=== PATIENT | male | born 1975 | race Native Hawaiian/Other Pacific Islander ===

== ENCOUNTER 2018-03-20 15:34 | Outpatient (CLI) | payer OTHER | END 2018-03-20 15:35 | disposition home or self-care (01) | LOC: SC 15:34 | PROVIDERS: ATTEND Internal Medicine Pulmonary Disease | DX: G47.10 Hypersomnia, unspecified (principal); R06.83 Snoring; G47.8 Other sleep disorders | CPT/HCPCS: 99203; 99212 ==

== ENCOUNTER 2018-05-16 20:19 | Outpatient (CLI) | payer OTHER | END 2018-05-16 20:20 | disposition home or self-care (01) | LOC: SC 20:19 | PROVIDERS: ATTEND Internal Medicine Pulmonary Disease | DX: G47.33 Obstructive sleep apnea (adult) (pediatric) (principal); G47.61 Periodic limb movement disorder | CPT/HCPCS: 95810 ==

== ENCOUNTER 2018-07-24 08:54 | Outpatient (CLI) | payer OTHER | END 2018-07-24 08:55 | disposition home or self-care (01) | LOC: SC 08:54 | PROVIDERS: ATTEND Nurse Practitioner Family | DX: G47.33 Obstructive sleep apnea (adult) (pediatric) (principal); G47.61 Periodic limb movement disorder | CPT/HCPCS: 99212; 99214 ==

== ENCOUNTER 2018-12-12 12:56 | Outpatient (CLI) | payer OTHER | END 2018-12-12 12:57 | disposition home or self-care (01) | LOC: SC 12:56 | PROVIDERS: ATTEND Nurse Practitioner Family | DX: G47.33 Obstructive sleep apnea (adult) (pediatric) (principal) | CPT/HCPCS: 99212; 99214 ==

== ENCOUNTER 2018-12-21 14:18 | Outpatient (CLI) | payer OTHER ==
[2018-12-21 14:53] LABS: BASOPHILS % (AUTO) 0.5 %; EOSINOPHILS # (AUTO) 0.2 10^3/uL (0.0-0.7); EOSINOPHILS % (AUTO) 2.5 %; HGB - HEMOGLOBIN 14.3 g/dL (14.0-18.0); LYMPHOCYTES # (AUTO) 2.1 10^3/uL (1.5-3.5); MEAN CORPUSCULAR HEMOGLOBIN 29.3 pg (27.0-31.0); MEAN CORPUSCULAR HGB CONC 33.1 g/dL (32.0-36.0); MEAN CORPUSCULAR VOLUME 88.4 fL (80.0-94.0); MEAN PLATELET VOLUME 7.9 fL (7.4-11.4); MONOCYTES # (AUTO) 0.6 10^3/uL (0.0-1.0); MONOCYTES % (AUTO) 8.8 %; NEUTROPHILS % (AUTO) 58.2 %; PLT - PLATELET COUNT 189 10^3/uL (130-450); RED BLOOD COUNT 4.89 10^6/uL (4.70-6.10); RED CELL DISTRIBUTION WIDTH 13.4 % (12.0-15.0); WHITE BLOOD COUNT 6.9 x10^3/uL (4.8-10.8)
[2018-12-21 15:59] LABS: ALBUMIN 4.1 g/dL (3.2-5.5); ALBUMIN/GLOBULIN RATIO 1.2 (1.0-2.2); BILIRUBIN,TOTAL 0.4 mg/dL (0.2-1.0); CALCIUM 8.6 mg/dL (8.5-10.3); TOTAL PROTEIN 7.5 g/dL (6.7-8.2)
== END 2018-12-21 14:19 | disposition home or self-care (01) ==
LOC: RT 14:18
PROVIDERS: ATTEND Internal Medicine Gastroenterology
DX: K42.9 Umbilical hernia without obstruction or gangrene (principal); E66.9 Obesity, unspecified; M10.9 Gout, unspecified; G47.33 Obstructive sleep apnea (adult) (pediatric); I10 Essential (primary) hypertension; E78.5 Hyperlipidemia, unspecified; E11.9 Type 2 diabetes mellitus without complications
CPT/HCPCS: 36415; 80053; 85025; 93005

== ENCOUNTER 2018-12-25 06:16 | Day surgery (SDC) | payer OTHER ==
[2018-12-25] MEDS ORDERED: ceFAZolin 2 GM/50 ML 2 GM/50 ML BAG IV ONE (06:53)
[2018-12-25] MEDS ORDERED: ceFAZolin 1 GM VIAL ONE (07:00)
[2018-12-25] MEDS ORDERED: LACTATED RINGERS 1,000 ML IV ONE (07:00)
[2018-12-25] MEDS ORDERED: LIDOCAINE 1%-EPI 1:100000 30 ML MDV ONE (07:01)
[2018-12-25] MEDS ORDERED: BUPIVACAINE 0.5% PF 30 ML VIAL ONE (07:01)
--- NOTE | 2018-12-25 07:15 | ANESTHESIA ---
Pre-Anesthesia VS, & Labs - Diagnosis umbilical hernia - Procedure umbilical hernia repair with mesh Vital Signs: Temp Pulse Resp BP Pulse Ox 36.2 C L 77 16 145/113 H 98 12/25/18 06:20 12/25/18 06:20 12/25/18 06:20 12/25/18 06:20 12/25/18 06:20 Height 5 ft 10 in Weight (kg) 101.9 kg Body Mass Index 27.6 - NPO >8 hours - Lab Results Current Lab Results: Laboratory Tests 12/25/18 06:51: POC Whole Bld Glucose 116 H Home Medications and Allergies Home Medications: Ambulatory Orders Colchicine 0.6 mg PO ONCE PRN 12/14/18 Telmisartan [Micardis] 20 mg PO DAILY 03/08/15 Simvastatin 20 mg PO QPM 02/15/16 Colchicine 0.6 mg PO ONCE PRN 12/14/18 Allergies/Adverse Reactions: Allergies Allergy/AdvReac Type Severity Reaction Status Date / Time No Known Drug Allergies Allergy Verified 02/15/16 18:04 Anes History & Medical History - Anesthetic History Anesthesia Complications: reports: No previous complications - Medical History Cardiovascular: reports: Hypertension, High cholesterol Pulmonary: reports: Sleep apnea, CPAP use Gastrointestinal: reports: None Urinary: reports: None Musculoskeletal: reports: Gout Endocrine/Autoimmune: reports: Other Skin: reports: None Smoking Status: Never smoker - Surgical History Orthopedic: Arthroscopic surgery Exam General: Alert Dental: Partials Upper, Partials Lower Mouth Opening: Greater than 4 Fingerbreadths Mallampati classification: IV Respiratory: Lungs clear Cardiovascular: Regular rate Plan Anesthesia Type: General Consent for Procedure(s) Verified and Reviewed: Yes Code Status: Attempt Resuscitation ASA classification: 3-Severe systemic disease Is this case an emergency?: No
[2018-12-25] MEDS ORDERED: BUPIVACAINE 0.5%-EPI 1:200000 PF 30 ML VIAL ONE (07:58)
[2018-12-25] MEDS ORDERED: ceFAZolin 1 GM VIAL IR ONE (08:11)
[2018-12-25] MEDS ORDERED: BUPIVACAINE 0.5%-EPI 1:200000 PF 30 ML VIAL SUBQ ONE (08:11)
[2018-12-25] MEDS ORDERED: PROPOFOL 200 MG/20 ML VIAL IVP ONE (08:18)
[2018-12-25] MEDS ORDERED: SUCCINYLCHOLINE 200 MG/10 ML VIAL IVP ONE (08:18)
[2018-12-25] MEDS ORDERED: fentaNYL 100 MCG/2 ML VIAL IVP ONE (08:18)
[2018-12-25] MEDS ORDERED: ONDANSETRON 4 MG/2 ML VIAL IVP ONE (08:18)
[2018-12-25] MEDS ORDERED: MIDAZOLAM 2 MG/2 ML VIAL IVP ONE (08:18)
[2018-12-25] MEDS ORDERED: KETOROLAC 30 MG/ML VIAL IVP ONE (08:18)
[2018-12-25] MEDS ORDERED: LIDOCAINE-MPF 2% 5 ML VIAL IM ONE (08:18)
[2018-12-25] MEDS ORDERED: IBUPROFEN 600 MG TABLET PO PRN (08:40)
[2018-12-25] MEDS ORDERED: ACETAMINOPHEN 325 MG TABLET PO PRN (08:40)
[2018-12-25] MEDS ORDERED: oxyCODONE 5 MG TABLET PO PRN (08:40)
[2018-12-25] MEDS ORDERED: ONDANSETRON 4 MG/2 ML VIAL IVP PRN (08:40)
[2018-12-25] MEDS ORDERED: oxyCODONE 5 MG TABLET ONE (09:33)
--- NOTE | 2018-12-25 10:02 | OPERATIVE REPORT ---
DATE OF SERVICE: 12/25/2018 Physician: John Malone MD PREOPERATIVE DIAGNOSIS: Symptomatic incarcerated umbilical hernia. POSTOPERATIVE DIAGNOSIS: Symptomatic incarcerated umbilical hernia. PROCEDURE PERFORMED: Open repair with Ventralex ST hernia patch. ANESTHESIA: General endotracheal plus local by Otis Alvarez CRNA. SURGEON: John Malone MD. ESTIMATED BLOOD LOSS: Minimal. COMPLICATIONS: None. DRAINS: None. FINDINGS: A 2 cm umbilical fascial defect was present. There was a hernia sac approximately 4 cm in diameter that was incarcerated, consisting primarily of preperitoneal fat. A [address] hernia patch was placed in the peritoneal position. INDICATIONS: This is a 43-year-old gentleman with a history of increasingly painful and tender umbilical bulge. Examination revealed an only partially reducible tender umbilical bulge. He was felt to be suffering from a symptomatic chronically incarcerated umbilical hernia, and advised undergo repair with prosthetic mesh to reduce the risk of recurrence. TECHNIQUE: After informed consent, the patient was taken to the operating room and was placed under general laryngeal mask converted to endotracheal anesthesia by Otis Alvarez CRNA. Preoperative preparation included application of sequential calf compression boots, administration of 2 grams of cefazolin intravenously within an hour of the incision. The abdomen was prepared with ChloraPrep solution and draped in the usual sterile fashion; 0.5% Marcaine with epinephrine was used for local infiltration anesthesia. Approximately 20 mL of the mixture was used. A curvilinear transverse incision was made over the superior edge of the umbilicus and extended bilaterally for a total length of approximately 4 cm. Hemostasis with electrocautery and 2-0 Vicryl ties. The incision was carried down through subcutaneous tissue, the umbilical dermis was dissected off of the hernia sac. The hernia sac was mobilized circumferentially down to the level of the anterior fascia. The hernia sac was entered. The hernia sac was then excised using electrocautery for hemostasis, along with 2-0 Vicryl ties. The hernia sac was discarded. The fascial edges were mobilized circumferentially, and the small Ventralex ST hernia patch was soaked in the antibiotic solution containing a gram of Ancef per liter, placed in a preperitoneal position, held to the anterior abdominal wall by the straps, while the fascial edges were reapproximated transversely with interrupted 0 Ethibond sutures. Approximately three were used to close the fascia and anchored the mesh straps to the anterior abdominal wall. Excess strap was excised and discarded. After hemostasis was ensured, the wound was irrigated with antibiotic solution, following which wound closure was accomplished in layers using interrupted 2-0 Vicryl to reapproximate the deep subcutaneous tissues and reapproximate the umbilical dermis to the anterior fascia, 3-0 Vicryl was used to approximate superficial subcutaneous tissues and 4-0 Monocryl for subcuticular skin closure, followed by Dermabond to complete the wound closure. Anesthesia was terminated, and the patient transferred to the recovery room in satisfactory condition. Sponge and needle counts were correct x2. No drains were used. TD: 12/25/2018 08:58 FREDI
[2018-12-25 10:08] VITALS: BP 126/94
== END 2018-12-25 06:17 | disposition home or self-care (01) ==
LOC: SDS 06:16
PROVIDERS: ATTEND Internal Medicine Gastroenterology
PROC: 0WUF0JZ Supplement Abdominal Wall with Synthetic Substitute, Open Approach (ICD-10-PCS; principal; 2018-12-25 07:30)
DX: K42.9 Umbilical hernia without obstruction or gangrene (principal); E11.9 Type 2 diabetes mellitus without complications; E78.00 Pure hypercholesterolemia, unspecified; M10.9 Gout, unspecified; I10 Essential (primary) hypertension; Z86.19 Personal history of other infectious and parasitic diseases; G47.30 Sleep apnea, unspecified; K42.0 Umbilical hernia with obstruction, without gangrene
CPT/HCPCS: 49585; A9270; C1781; J0330; J0690; J7120

== ENCOUNTER 2019-12-22 21:55 | Emergency (ER) | payer OTHER ==
--- NOTE | 2019-12-22 22:18 | ED Physician Documentation ---
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 [employer] presents with multiple complaints to include acid reflux periodic episodes of shortness of breath without chest pain or syncope he reports lightheadedness whenever he stands up but denies any sensation that the room is spinning or vertigo he denies any history of DC or stroke or pulmonary embolism or DVT he reports acid reflux and heartburn and reports that he is not currently taking any medications other than an antihypertensive and a statin for hyperlipidemia.He denies any history in the family of sudden in young age and mother, father, brother sister.) Review of Systems Constitutional: reports: Reviewed and negative Eyes: reports: Reviewed and negative Ears: reports: Reviewed and negative Nose: reports: Reviewed and negative Throat: reports: Reviewed and negative Cardiac: reports: Reviewed and negative. denies: Chest pain / pressure, Palpitations, Pedal edema, Calf pain Respiratory: reports: Reviewed and negative. denies: Dyspnea, Cough, Hemoptysis, Wheezing GI: reports: Other (Reports acid reflux) : reports: Reviewed and negative Skin: reports: Reviewed and negative Musculoskeletal: reports: Reviewed and negative Neurologic: reports: Reviewed and negative Psychiatric: reports: Reviewed and negative Endocrine: reports: Reviewed and negative Immunocompromised: reports: Reviewed and negative PD PAST MEDICAL HISTORY - Past Medical History Cardiovascular: Hypertension, High cholesterol Musculoskeletal: Gout - Past Surgical History Past Surgical History: No - Present Medications Home Medications: Ambulatory Orders Medication Instructions Recorded Confirmed Telmisartan [Micardis] 20 mg PO DAILY 03/08/15 12/22/19 Simvastatin 20 mg PO QPM 02/15/16 12/22/19 Colchicine 0.6 mg PO ONCE PRN 12/14/18 12/14/18 - Allergies Allergies/Adverse Reactions: Allergies Allergy/AdvReac Type Severity Reaction Status Date / Time No Known Drug Allergies Allergy Verified 12/22/19 22:18 - Social History Does the pt smoke?: No Smoking Status: Never smoker Does the pt drink ETOH?: No Does the pt have substance abuse?: No - Immunizations Immunizations are current?: Yes PD ED PE NORMAL - Vitals Vital signs reviewed: Yes - General General: Alert and oriented X 3, No acute distress - HEENT HEENT: PERRL - Neck Neck: Supple, no meningeal sign - Cardiac Cardiac: RRR, No murmur - Respiratory Respiratory: Clear bilaterally - Abdomen Abdomen: Normal bowel sounds, Soft, Non tender, Non distended - Derm Derm: Warm and dry - Extremities Extremities: No deformity - Neuro Neuro: Alert and oriented X 3 - Psych Psych: Normal mood, Normal affect Results - Vitals Vitals: Vital Signs - 24 hr 12/22/19 12/22/19 12/22/19 21:58 22:05 23:22 Temperature 36.8 C Heart Rate 105 H 102 H 88 Respiratory 16 27 H 21 Rate Blood Pressure 155/113 H 150/108 H 135/94 H Blood Pressure 150/108 H [Left] O2 Saturation 98 97 95 12/23/19 00:25 Temperature Heart Rate 91 Respiratory 23 Rate Blood Pressure 129/104 H Blood Pressure [Left] O2 Saturation 97 Oxygen O2 Source Room air - EKG (time done) 23:29 Rate: Other (EKG shows a rate of 104 NM interval 157 QRS 101 QTc 454 sinus tachycardia, P waves are upright in leads I, II and III inverted in aVR there is no NM depression or elevation in lead to aVR respectively there is left axis deviation there is good R wave progression there is no acute ST segment elevation or depression there is no biphasic T waves there is no shortened NM interval otherwise it is a nonspecific EKG.) - Labs Labs: Laboratory Tests 12/22/19 12/22/19 12/22/19 22:28 22:28 22:28 WBC 8.1 RBC 5.47 Hgb 16.0 Hct 48.9 MCV 89.4 MCH 29.3 MCHC 32.7 RDW 12.4 Plt Count 200 MPV 10.1 Neut # (Auto) 5.0 Lymph # (Auto) 2.5 [place] # (Auto) 0.5 Eos # (Auto) 0.0 Baso # (Auto) 0.0 Absolute Nucleated RBC 0.00 Nucleated RBC % 0.0 D-Dimer Sodium 137 Potassium 4.0 Chloride 101 Carbon Dioxide 23 Anion Gap 13.0 BUN 13 Creatinine 0.9 Estimated GFR (MDRD) 93 Glucose 118 H Calcium 9.3 Total Bilirubin 0.7 AST 35 ALT 53 Alkaline Phosphatase 74 Total Creatine Kinase 265 Troponin I High Sens Total Protein 8.4 H Albumin 4.7 Globulin 3.7 Albumin/Globulin Ratio 1.3 Lipase 36 12/22/19 12/22/19 22:28 22:28 WBC RBC Hgb Hct MCV MCH MCHC RDW Plt Count MPV Neut # (Auto) Lymph # (Auto) [place] # (Auto) Eos # (Auto) Baso # (Auto) Absolute Nucleated RBC Nucleated RBC % D-Dimer < 200.0 L Sodium Potassium Chloride Carbon Dioxide Anion Gap BUN Creatinine Estimated GFR (MDRD) Glucose Calcium Total Bilirubin AST ALT Alkaline Phosphatase Total Creatine Kinase Troponin I High Sens 5.9 Total Protein Albumin Globulin Albumin/Globulin Ratio Lipase PD MEDICAL DECISION MAKING - ED course Complexity details: other (HEART SCORE 1, UNABLE TO PERC OUT PATIENT IS TACHYCARDIC) Departure - Departure Disposition: 01 Home, Self Care Clinical Impression: Epigastric pain GERD (gastroesophageal reflux disease) Qualifiers: Esophagitis presence: esophagitis presence not specified Qualified Code(s): K21.9 - Gastro-esophageal reflux disease without esophagitis Condition: Good Instructions: ED GERD Follow-Up: Maria Antonia Mead MD [Primary Care Provider] -
[2019-12-22 22:38] LABS: BASOPHILS % (AUTO) 0.5 %; EOSINOPHILS % (AUTO) 0.5 %; LYMPHOCYTES # (AUTO) 2.5 10^3/uL (1.5-3.5); LYMPHOCYTES % (AUTO) 30.2 %; MEAN CORPUSCULAR HEMOGLOBIN 29.3 pg (27.0-31.0); MEAN CORPUSCULAR HGB CONC 32.7 g/dL (32.0-36.0); MEAN CORPUSCULAR VOLUME 89.4 fL (80.0-94.0); MEAN PLATELET VOLUME 10.1 fL (7.4-11.4); MONOCYTES # (AUTO) 0.5 10^3/uL (0.0-1.0); MONOCYTES % (AUTO) 6.4 %; NEUTROPHILS % (AUTO) 61.9 %; PLT - PLATELET COUNT 200 10^3/uL (130-450); RED BLOOD COUNT 5.47 10^6/uL (4.70-6.10); RED CELL DISTRIBUTION WIDTH 12.4 % (12.0-15.0); WHITE BLOOD COUNT 8.1 x10^3/uL (4.8-10.8)
[2019-12-22] MEDS ORDERED: SODIUM CHLORIDE 0.9% 1,000 ML IV ONE (22:39)
[2019-12-22 22:55] LABS: ALBUMIN 4.7 g/dL (3.2-5.5); ALBUMIN/GLOBULIN RATIO 1.3 (1.0-2.2); BILIRUBIN,TOTAL 0.7 mg/dL (0.2-1.0); CALCIUM 9.3 mg/dL (8.5-10.3); CREATININE 0.9 mg/dL (0.6-1.2); TOTAL PROTEIN 8.4 g/dL (6.7-8.2)
--- NOTE | 2019-12-22 22:58 | XRAY Report ---
Reason: sob Procedure Date: 12/22/2019 Accession Number: [id number] / [id number] Procedure: XR - Chest 1 View X-Ray CPT Code: 25643 Final Report FULL RESULT: EXAM: CHEST RADIOGRAPHY EXAM DATE: 12/22/2019 10:49 PM. CLINICAL HISTORY: Shortness of breath. Lightheaded. Dizzy. COMPARISON: XR ACUTE ABDOMEN SERIES 07/13/2012 11:58 PM. TECHNIQUE: 1 view. FINDINGS: Lungs/Pleura: No focal opacities evident. No pleural effusion. No pneumothorax. Mediastinum: Within exam limitations, the cardiomediastinal contour is normal. Other: None. IMPRESSION: Normal single view chest. RADIA
[2019-12-23] MEDS ORDERED: FAMOTIDINE 20 MG/2 ML VIAL IVP STA (00:08)
[2019-12-23] MEDS ORDERED: MAG HYDROX/AL HYDROX/SIMETH 30 ML UDC PO STA (00:13)
[2019-12-23] MEDS ORDERED: LIDOCAINE VISCOUS 2% 15 ML UDC MM STA (00:14)
[2019-12-23 00:45] VITALS: BP 139/91
[2019-12-23] MEDS ORDERED: GI COCKTAIL 120 ML BOTTLE PO SCH (01:00)
== END 2019-12-23 00:45 | disposition home or self-care (01) ==
LOC: ED 21:55
DX: R10.13 Epigastric pain (principal); K21.9 Gastro-esophageal reflux disease without esophagitis; R00.0 Tachycardia, unspecified; R42 Dizziness and giddiness; I10 Essential (primary) hypertension; E78.5 Hyperlipidemia, unspecified
CPT/HCPCS: 36415; 71045; 80053; 82550; 83690; 84484; 85025; 85379; 93005; 96361; 96374; 99283; 99284; A9270

== ENCOUNTER 2021-03-13 10:06 | Outpatient (CLI) | payer OTHER | END 2021-03-13 10:07 | disposition critical access hospital (66) | LOC: EMS 10:06 | DX: R42 Dizziness and giddiness (principal); R06.09 Other forms of dyspnea; R20.0 Anesthesia of skin; R20.2 Paresthesia of skin | CPT/HCPCS: A0425; A0429 ==

== ENCOUNTER 2021-03-13 10:35 | Emergency (ER) | payer OTHER ==
--- NOTE | 2021-03-13 10:57 | ED Physician Documentation ---
PD HPI DYSPNEA - Stated complaint Stated Complaint: LIGHT HEADED - History obtained from History obtained from: Patient - History of Present Illness Timing - onset: How many weeks ago (few) Timing - onset during: Light activity (he feels short of breath with activity, even just going up some stairs. He says he feels better with his face covering away from his nose. Has not had similar in the past. Has had some congestion lately from seasonal allergies. Did not his BP to be elevated, so was concerned about it all.), Exertion Timing - duration: Weeks Timing - details: Gradual onset, Intermittant, Waxing and waning Inciting event(s): No: URI, Immobilization/travel Improved by: Rest Worsened by: Exertion. No: Laying flat Associated symptoms: Wheezing. No: Fever, Cough, Hemoptysis, Palpitations, Diaphoresis, Bilateral edema Similar symptoms before: Has not had sx before Review of Systems Constitutional: reports: Myalgias. denies: Fever, Chills Nose: reports: Congestion. denies: Rhinorrhea / runny nose Throat: denies: Sore throat Cardiac: denies: Chest pain / pressure, Palpitations Respiratory: reports: Dyspnea, Wheezing. denies: Cough GI: denies: Nausea, Vomiting, Diarrhea Musculoskeletal: denies: Extremity swelling Neurologic: denies: Focal weakness, Numbness, Headache PD PAST MEDICAL HISTORY - Past Medical History Cardiovascular: Hypertension, High cholesterol Musculoskeletal: Gout - Past Surgical History Past Surgical History: No General: Hiatal hernia repair - Present Medications Home Medications: Ambulatory Orders Medication Instructions Recorded Confirmed Telmisartan [Micardis] 20 mg PO DAILY 03/08/15 03/13/21 Simvastatin 20 mg PO QPM 02/15/16 03/13/21 Colchicine 0.6 mg PO ONCE PRN 12/14/18 03/13/21 Albuterol Sulf [Ventolin Hfa 1 - 2 puffs INH Q4HR PRN #1 inhaler 03/13/21 Inhaler] hydroCHLOROthiazide [Hydrodiuril] 25 mg PO DAILY #30 tablet 03/13/21 - Allergies Allergies/Adverse Reactions: Allergies Allergy/AdvReac Type Severity Reaction Status Date / Time No Known Drug Allergies Allergy Verified 03/13/21 11:02 - Social History Does the pt smoke?: No Smoking Status: Never smoker Does the pt drink ETOH?: No Does the pt have substance abuse?: No - Immunizations Immunizations are current?: Yes - POLST Patient has POLST: No PD ED PE NORMAL - Vitals Vital signs reviewed: Yes - General General: Alert and oriented X 3, No acute distress, Well developed/nourished - HEENT HEENT: Moist mucous membranes, Pharynx benign - Neck Neck: Supple, no meningeal sign, No adenopathy - Cardiac Cardiac: RRR, No murmur - Respiratory Respiratory: Clear bilaterally - Abdomen Abdomen: Soft, Non tender - Male Male : Deferred - Rectal Rectal: Deferred - Derm Derm: Normal color, Warm and dry - Extremities Extremities: Normal ROM s pain, No edema, No calf tenderness / cord - Neuro Neuro: Alert and oriented X 3, No motor deficit, Normal speech Results - Vitals Vitals: Oxygen O2 Source Room air - EKG (time done) 08:45 Rate: Rate (enter#) (95) Rhythm: NSR [place]: Normal Intervals: Normal SD QRS: Normal Ischemia: Normal ST segments Compare to prior EKG: Old EKG unavailable - Labs Labs: Laboratory Tests 03/13/21 03/13/21 03/13/21 11:40 11:40 11:40 WBC 8.2 RBC 5.45 Hgb 15.7 Hct 48.4 MCV 88.8 MCH 28.8 MCHC 32.4 RDW 12.5 Plt Count 201 MPV 10.2 Neut # (Auto) 6.1 Lymph # (Auto) 1.5 [place] # (Auto) 0.5 Eos # (Auto) 0.0 Baso # (Auto) 0.0 Absolute Nucleated RBC 0.00 Nucleated RBC % 0.0 Sodium 135 Potassium 4.5 Chloride 101 Carbon Dioxide 25 Anion Gap 9.0 BUN 13 Creatinine 0.8 Estimated GFR (MDRD) 105 Glucose 118 H Calcium 9.5 Total Bilirubin 0.9 AST 37 ALT 54 Alkaline Phosphatase 78 Troponin I High Sens 8.2 B-Natriuretic Peptide Total Protein 8.5 H Albumin 4.7 Globulin 3.8 Albumin/Globulin Ratio 1.2 Lipase 32 TSH 03/13/21 03/13/21 11:40 11:40 WBC RBC Hgb Hct MCV MCH MCHC RDW Plt Count MPV Neut # (Auto) Lymph # (Auto) [place] # (Auto) Eos # (Auto) Baso # (Auto) Absolute Nucleated RBC Nucleated RBC % Sodium Potassium Chloride Carbon Dioxide Anion Gap BUN Creatinine Estimated GFR (MDRD) Glucose Calcium Total Bilirubin AST ALT Alkaline Phosphatase Troponin I High Sens B-Natriuretic Peptide 13 Total Protein Albumin Globulin Albumin/Globulin Ratio Lipase TSH 1.23 - Rads (name of study) chest xray Radiology: Prelim report reviewed (no acute process), See rad report ECHO Radiology: Prelim report reviewed (normal appearance with EF 60-65%.), See rad report PD MEDICAL DECISION MAKING - ED course Complexity details: considered differential (Dyspnea seems related to breathing with some wheeze. He has some elevated BP that is concerning for him and has been patterned elevated lately. So can add diuretic and inhaler. Can be element of weight gain and deconditioning affecting dyspnea. ), d/w patient Departure - Departure Disposition: 01 Home, Self Care Clinical Impression: Elevated blood pressure reading Dyspnea Qualifiers: Dyspnea type: dyspnea on exertion Qualified Code(s): R06.00 - Dyspnea, unspecified Condition: Stable Record reviewed to determine appropriate education?: Yes Instructions: ED Dyspnea Shortness of Breath Follow-Up: [facility] [Provider Group] Prescriptions: Albuterol Sulf [Ventolin Hfa Inhaler] 1 - 2 puffs INH Q4HR PRN #1 inhaler PRN Reason: Shortness Of Air/Wheezing hydroCHLOROthiazide [Hydrodiuril] 25 mg PO DAILY #30 tablet Comments: Your EKG and chest x-ray are normal. The abnormal blood tests without any signs of heart failure or heart attack. Kidney function is good as are electrolytes and blood sugar. The ultrasound of your heart (echocardiogram) is normal so not showing any signs of heart failure or dysfunction. Your blood pressure was a little bit elevated but not significantly so. Continue your myocarditis and we can add a mild diuretic called HCTZ hydrochlorothiazide daily. Regular exercise. Low-salt diet. Certainly a little bit of weight loss is good as well. I wonder if your shortness of breath relates possibly to wearing the mask with activity but otherwise could be some reactive airway disease from environmental allergies or irritations. Try albuterol inhaler 2 puffs 3-4 times a day for the next several days to week and then use it 2 puffs prior to activity over the next week or 2. See if that helps with your breathing. Discharge Date/Time: 03/13/21 14:27
--- OUTSIDE RECORDS SUMMARY | 2021-03-13 11:02 | EXTERNAL MEDICAL SUMMARY RPT | Continuity of Care Document ---
:1975 Demographics Phone Unavailable Preferred Language Unknown Marital Status Unknown [employer]ism Affiliation Unknown Race Unknown Ethnic Group Unknown Author Organization [facility] Address [address] [place] [address] Phone Social History date description facility [id number]
--- NOTE | 2021-03-13 11:49 | XRAY Report ---
PROCEDURE: Chest 1 View X-Ray INDICATIONS: Chest Pain TECHNIQUE: One view of the chest was acquired. COMPARISON: 12/22/2019 FINDINGS: Surgical changes and devices: None. Lungs and pleura: No pleural effusions or pneumothorax. Lungs are clear. Mediastinum: Mediastinal contours appear normal. Heart size is normal. Bones and chest wall: No suspicious bony lesions. Overlying soft tissues appear unremarkable. IMPRESSION: No acute cardiopulmonary pathology. Reviewed by: Ander Obrien MD on 03/13/2021 10:48 AM [facility] Approved by: Ander Obrien MD on 03/13/2021 10:48 AM [place] Station ID: [id number]
[2021-03-13 11:52] LABS: BASOPHILS % (AUTO) 0.4 %; EOSINOPHILS % (AUTO) 0.5 %; HCT - HEMATOCRIT 48.4 % (42.0-52.0); HGB - HEMOGLOBIN 15.7 g/dL (14.0-18.0); LYMPHOCYTES # (AUTO) 1.5 10^3/uL (1.5-3.5); LYMPHOCYTES % (AUTO) 18.4 %; MEAN CORPUSCULAR HEMOGLOBIN 28.8 pg (27.0-31.0); MEAN CORPUSCULAR HGB CONC 32.4 g/dL (32.0-36.0); MEAN CORPUSCULAR VOLUME 88.8 fL (80.0-94.0); MEAN PLATELET VOLUME 10.2 fL (7.4-11.4); MONOCYTES # (AUTO) 0.5 10^3/uL (0.0-1.0); NEUTROPHILS # (AUTO) 6.1 10^3/uL (1.5-6.6); NEUTROPHILS % (AUTO) 74.3 %; PLT - PLATELET COUNT 201 10^3/uL (130-450); RED BLOOD COUNT 5.45 10^6/uL (4.70-6.10); RED CELL DISTRIBUTION WIDTH 12.5 % (12.0-15.0); WHITE BLOOD COUNT 8.2 x10^3/uL (4.8-10.8)
[2021-03-13 12:47] LABS: ALBUMIN 4.7 g/dL (3.2-5.5); ALBUMIN/GLOBULIN RATIO 1.2 (1.0-2.2); BILIRUBIN,TOTAL 0.9 mg/dL (0.2-1.0); CALCIUM 9.5 mg/dL (8.5-10.3); CREATININE 0.8 mg/dL (0.6-1.2); POTASSIUM 4.5 mmol/L (3.5-5.0); TOTAL PROTEIN 8.5 g/dL (6.7-8.2)
[2021-03-13 14:12] VITALS: BP 138/94
== END 2021-03-13 14:27 | disposition home or self-care (01) ==
LOC: EDUNIT# → ED 10:35
DX: R06.09 Other forms of dyspnea (principal); I10 Essential (primary) hypertension
CPT/HCPCS: 36415; 80053; 82088; 83690; 83880; 84244; 84443; 84484; 85025; 93005; 93306; 99284

== ENCOUNTER 2021-06-07 14:06 | Outpatient (CLI) | payer OTHER ==
--- NOTE | 2021-06-08 10:37 | XRAY Report ---
PROCEDURE: Wrist 3 View RT INDICATIONS: GOUT TECHNIQUE: 3 views of the wrist were acquired. COMPARISON: None FINDINGS: Bones: No fractures or dislocations. No suspicious bony lesions. No visualized erosions. Scaphoid view: Not obtained. Soft tissues: No suspicious soft tissue calcifications. IMPRESSION: No visualized erosions. Reviewed by: Heather Luo MD on 06/08/2021 10:36 AM PDT Approved by: Heather Luo MD on 06/08/2021 10:36 AM PDT Station ID: [id number]
== END 2021-06-07 23:59 | disposition home or self-care (01) ==
LOC: DI.N 14:06
PROVIDERS: ATTEND Physician Assistant Medical
DX: M10.9 Gout, unspecified (principal)

== ENCOUNTER 2022-01-08 12:41 | Outpatient (CLI) | payer OTHER ==
[2022-01-08 14:00] VITALS: BP 151/107
--- NOTE | 2022-01-08 14:00 | SLEEP CARE CONSULTATION ---
Information from patient questionnaire entered by Petar Barahona MA. I have reviewed and concur with the information entered by Petar Barahona MA. This document represents the service I personally performed and the decisions made by , Ness Ascencio ARNP. History of Present Illness Service Date and Time: 01/08/2022 1241 Reason for Visit: New patient (last seen 11/2018, on CPAP, ), Previously diagnosed sleep apnea, sleep apnea on CPAP therapy, Re-establish care Chief Complaint: reports: Snoring, Observed pauses in breathing, Frequent awakenings at night Date of Onset: FOR A WHILE Usual bedtime: 10 PM Time it takes to fall asleep: 1 HOUR Snores at night: Yes Observed to quit breathing while asleep: No Sleeps alone due to snoring: Yes Number of times waking at night: 1-2 Reasons for waking at night: reports: Snoring, Gasping for air Toss, Turn, or Twitch while sleeping: Yes Recalls having dreams: Yes Usually gets out of bed at: 0500 Feels refreshed in the morning: Yes Morning headache: No Sleepy or fatigued during the day: Yes Ever fallen asleep while driving: Yes Takes day naps: No Dreams during day naps: No Prior sleep studies: Yes Year and Where: [facility] Additional HPI information: MYRA DEL REAL was previously diagnosed to have severe, AHI 45.4, obstructive sleep apnea-hypopnea syndrome and comes in today to re-establish care for CPAP therapy. He has a Dreamstation that is on the recall and he has not been using it since he heard about the recall and was told to stop using it. - Parasomnia Symptoms Ever been unable to move upon waking from sleep: No Walks in sleep: No Talks in sleep: Yes Ever acted out dreams in sleep: Yes Ever felt weak in the knees when startled or emotional: No Bothered by creepy, crawly, restless sensations in legs: Yes Problems with memory or concentration: Yes CPAP Compliance Data - Data Reviewed with Patient Average duration of nightly device use: 1 hours 32 minutes Compliance rate %: 0 (4 to 03-27-21 30 days before stopped) Current pressure setting (cmH2O): 4-9 (90% avg 9.0 cmH2O) Average residual AHI: 19.9 Central apnea: 0.1 Obstructive apnea: 1.6 Hypopnea: 18.2 Average large leak: 32 mins 30 secs Compliance data discussion: He has been using [employer] for his supplies. They have him registered for the recall. He is waiting for a new CPAP to be given to him. He is using a full face mask. He has not been using the CPAP since he was informed of the recall and was told to stop using the CPAP. Subjective Missed days of use due to: reports: other (recall on his CPAP) Patient concerns: denies: aerophagia, mask discomfort, air blowing in eyes, mask leak noise, condensation in mask/hose, nasal congestion, dry mouth, nose, throat, epistaxis, other Observed to snore while using device: No Current pressure setting perceived as: comfortable On therapy, patient: reports: sleeping better, awakening more refreshed, being more awake and alert during the day, more rested overall. denies: drowsiness while driving Initial [place] Sleepiness Scale score: 22 (2021) Past Medical History Past Medical History: reports: Hypertension, Gout, GERD Social History The patient's occupation is a AM. Patient is and lives in [place]. Have you smoked in the past 12 months: No Alcohol use: Yes Alcohol amount and frequency: 1 BOTTLE X YEARLY Caffeine use: No Family History Family history of sleep disordered breathing: Yes Family Hx Sleep Apnea: Mother: Snoring, Sleep apnea - Untreated, Father: Snoring, Sleep apnea - Untreated, Sibling: Snoring, Sleep apnea - Untreated, Grandparent: Snoring, Sleep apnea - Untreated Allergies and Home Medications Drug allergies reviewed: Yes (NKDA) Home medication list reviewed: Yes Allergy and home medication list: Allergies No Known Drug Allergies Allergy (Verified 03/13/21 11:02) Medications: Micardis Simvastatin Omeprazole Ibuprofen Review of Systems Weight gain over past 5 years: 10 Weight loss over past 5 years: 5 Cardiovascular: reports: high blood pressure Gastrointestinal: reports: heartburn Urinary: reports: frequency Ear/Nose/Throat: reports: wisdom teeth removed Musculoskeletal: reports: joint pain Immunologic: reports: rash Physical Exam Vital signs obtained and entered by: Jacob DALLAS Blood Pressure: 151/107 (LEFT , PULSE 79, RESP 16,) Cuff size: wrist Heart Rate: 79 O2 Saturation: 98 (PAPER MASK) Height: 5 ft 9 in Weight: 225 lb (WITH CLOTHES) Body Mass Index: 33.2 BMI Classification: Obese Heart: regular rate and rhythm Lungs: clear bilaterally Impression and Plan 1. Obstructive Sleep Apnea-Hypopnea Syndrome, severe, with poor treatment compliance and fair apnea control. On CPAP therapy, the patient has better sleep quality and is more rested overall. Patient's old therapy report shows an elevated AHI. The patients pressure will be changed to autoCPAP 5-10 cmH20 for elevation of residual AHI. Patient advised to contact me if pressure change is uncomfortable so that it can be adjusted. Goals for apnea control discussed. He has a Dreamstation that he has been unable to use since it is on the [employer] recall. Patient has already registered their device for the recall. Patient denies any black particles seen in machine or hoses but did have some burning odors from his device. He stopped using it around April 2021. Patient has insurance which may replace his device sooner. Patient would like to get back into his CPAP because he is waking up gasping for air at night and needs treatment. I will order a new device and see if we can get him back into a CPAP sooner. Patient voiced understanding and agreement with plan. Patient's apnea severity and rationale for treatment to reduce apnea, improve sleep quality and reduce cardiovascular and cerebrovascular events was reviewed. I also reviewed the benefit of consistent device use of CPAP for hypertension. Patient was encouraged to lose weight for their overall health and to reduce apneas. * Change auto CPAP pressure to 5-10 cmH2O * Update device * Update supplies as needed * Notify me if snoring with mask or feeling that the pressure is too much or too little * Attempt to lose weight * Call this office if any problems using CPAP * Return for follow up one month after obtaining new device, or sooner if concerns arise Counseling Topics: Weight loss health impact Visit Type: In Office Time Spent with Patient (minutes): 32 Provider Statement: I spent 100% of the Face to Face Visit with the patient with greater than 50% spent counseling the patient and coordination of care.
== END 2022-01-08 12:42 | disposition home or self-care (01) ==
LOC: SC 12:41
PROVIDERS: ATTEND Nurse Practitioner Family
DX: G47.33 Obstructive sleep apnea (adult) (pediatric) (principal); E66.9 Obesity, unspecified; Z68.33 Body mass index [BMI] 33.0-33.9, adult
CPT/HCPCS: 99203; 99212

== ENCOUNTER 2023-12-27 14:50 | Emergency (ER) | payer OTHER ==
[2023-12-27 15:35] LABS: BASOPHILS % (AUTO) 0.4 %; EOSINOPHILS # (AUTO) 0.2 10^3/uL (0.0-0.7); EOSINOPHILS % (AUTO) 2.5 %; HCT - HEMATOCRIT 50.3 % (42.0-52.0); LYMPHOCYTES # (AUTO) 1.8 10^3/uL (1.5-3.5); LYMPHOCYTES % (AUTO) 25.9 %; MEAN CORPUSCULAR HEMOGLOBIN 27.9 pg (27.0-31.0); MEAN CORPUSCULAR HGB CONC 31.8 g/dL (32.0-36.0); MEAN CORPUSCULAR VOLUME 87.8 fL (80.0-94.0); MEAN PLATELET VOLUME 9.9 fL (7.4-11.4); MONOCYTES # (AUTO) 0.5 10^3/uL (0.0-1.0); MONOCYTES % (AUTO) 6.6 %; NEUTROPHILS # (AUTO) 4.4 10^3/uL (1.5-6.6); NEUTROPHILS % (AUTO) 64.2 %; PLT - PLATELET COUNT 202 10^3/uL (130-450); RED BLOOD COUNT 5.73 10^6/uL (4.70-6.10); WHITE BLOOD COUNT 6.8 x10^3/uL (4.8-10.8)
[2023-12-27 15:48] LABS: ALBUMIN 4.3 g/dL (3.2-5.5); ALBUMIN/GLOBULIN RATIO 1.2 (1.0-2.2); BILIRUBIN,TOTAL 0.6 mg/dL (0.2-1.0); CALCIUM 9.4 mg/dL (8.5-10.3); CREATININE 0.8 mg/dL (0.6-1.3); POTASSIUM 3.5 mmol/L (3.5-4.5)
--- NOTE | 2023-12-27 16:01 | XRAY Report ---
PROCEDURE: Chest 1V INDICATIONS: Chest Pain TECHNIQUE: One view of the chest was acquired. COMPARISON: None. FINDINGS: Surgical changes and devices: None. Lungs and pleura: No pleural effusions or pneumothorax. Lungs are clear. Mediastinum: Mediastinal contours appear normal. Heart size is normal. Bones and chest wall: No suspicious bony lesions. Overlying soft tissues appear unremarkable. IMPRESSION: No acute cardiopulmonary process. Reviewed by: Bebeto Manuel MD on 12/27/2023 4:00 PM [facility] Approved by: Bebeto Manuel MD on 12/27/2023 4:00 PM [facility] Station ID: [id number]
[2023-12-27 16:02] LABS: TROPONIN I HIGH SENSITIVITY 29.9 ng/L (2.3-19.7)
[2023-12-27] MEDS ORDERED: ALBUTEROL NEB 2.5 MG/3 ML INH STA (16:42)
[2023-12-27] MEDS ORDERED: iohexoL-300 100 ML VIAL ONE (16:45)
--- NOTE | 2023-12-27 16:52 | ED Physician Documentation ---
History of Present Illness - Stated complaint Stated Complaint: CHEST PX,SOA - Chief complaint Chief Complaint: Cardiac - History obtained from History obtained from: Patient - Additonal information Additional information: Patient is a 48-year-old male who states that he has had cough and congestion for the past 4 to 5 weeks since being in [facility]. He states it feels like his breathing is tight. He occasionally has wheezing. Has not tried an inhaler. No other chest pain. No fevers. No chills. He did have a short episode of pain on the right side of the chest today that felt sharp, lasted for couple of minutes. Does not have any pain currently. He states he works out daily and does not have any pain with exercising. No nausea or vomiting. No history of blood clots. No recent immobilization. No calf swelling or pain. He states the chest pain earlier was like a 5 out of 10, sharp. Nonradiating. No pain now He feels like he still has a lot of mucus production in his chest. Review of Systems Constitutional: denies: Fever, Chills Nose: denies: Rhinorrhea / runny nose, Congestion GI: denies: Abdominal Pain, Vomiting, Diarrhea PD PAST MEDICAL HISTORY - Past Medical History Past Medical History: Yes Cardiovascular: Hypertension, High cholesterol Respiratory: Sleep apnea, CPAP use Neuro: None Endocrine/Autoimmune: None GI: GERD : None HEENT: None Psych: None Musculoskeletal: Gout Derm: None - Past Surgical History Past Surgical History: Yes General: Hiatal hernia repair, Colonoscopy, EGD - Present Medications Home Medications: Ambulatory Orders Medication Instructions Recorded Confirmed Telmisartan [Micardis] 40 mg PO DAILY 03/08/15 12/27/23 Albuterol Sulf [Ventolin Hfa 1 - 2 puffs INH Q4HR PRN #1 each 12/27/23 Inhaler] Omeprazole Magnesium 20 mg PO DAILY 12/27/23 12/27/23 - Allergies Allergies/Adverse Reactions: Allergies Allergy/AdvReac Type Severity Reaction Status Date / Time No Known Drug Allergies Allergy Verified 12/27/23 14:56 - Social History Does the pt smoke?: No Smoking Status: Never smoker Does the pt drink ETOH?: No Does the pt have substance abuse?: No - Immunizations Immunizations are current?: Yes - POLST Patient has POLST: No PD ED PE NORMAL - Vitals Vital signs reviewed: Yes - General General: Alert and oriented X 3, No acute distress - HEENT HEENT: PERRL, Moist mucous membranes - Neck Neck: Supple, no meningeal sign - Cardiac Cardiac: RRR, No murmur, Strong equal pulses - Respiratory Respiratory: No respiratory distress, Clear bilaterally, Other (mild wheezing B) - Abdomen Abdomen: Soft, Non tender, Non distended - Derm Derm: Warm and dry - Extremities Extremities: No edema, No calf tenderness / cord - Neuro Neuro: Alert and oriented X 3 - Psych Psych: Normal mood, Normal affect Results - Vitals Vitals: Vital Signs - 24 hr 12/27/23 12/27/23 12/27/23 14:59 16:14 16:18 Temperature 36.4 C L Heart Rate 91 91 Respiratory 18 18 20 Rate Blood Pressure 176/123 H O2 Saturation 97 100 12/27/23 12/27/23 12/27/23 16:39 17:11 17:18 Temperature Heart Rate 91 90 80 Respiratory 19 18 18 Rate Blood Pressure 158/106 H 174/110 H O2 Saturation 100 100 12/27/23 12/27/23 18:43 18:57 Temperature Heart Rate 71 Respiratory 17 17 Rate Blood Pressure 141/99 H O2 Saturation 98 Oxygen O2 Source Room air - EKG (time done) 1506 EKG releavant findings:: EKG personally interpreted by author of this note. Relevant findings are: Rate: Rate (enter#) (84) Rhythm: NSR [place]: Normal Intervals: Normal TN QRS: Normal Ischemia: ST elevation c/w repol - Labs Labs: Laboratory Tests 12/27/23 12/27/23 12/27/23 15:30 15:30 17:48 WBC 6.8 RBC 5.73 Hgb 16.0 Hct 50.3 MCV 87.8 MCH 27.9 MCHC 31.8 L RDW 13.0 Plt Count 202 MPV 9.9 Neut # (Auto) 4.4 Lymph # (Auto) 1.8 [place] # (Auto) 0.5 Eos # (Auto) 0.2 Baso # (Auto) 0.0 Absolute Nucleated RBC 0.00 Nucleated RBC % 0.0 Sodium 137 Potassium 3.5 Chloride 103 Carbon Dioxide 27 Anion Gap 7.0 BUN 13 Creatinine 0.8 Estimated GFR (MDRD) 104 Glucose 115 H Calcium 9.4 Total Bilirubin 0.6 AST 27 ALT 23 Alkaline Phosphatase 87 Troponin I High Sens 29.9 H* 29.8 H* Total Protein 8.0 Albumin 4.3 Globulin 3.7 Albumin/Globulin Ratio 1.2 Lipase 29 - Rads (name of study) cxr Relevant Findings:: Final report received, See rad report CT PA Relevant Findings:: Final report received, See rad report PD Medical Decision Making - ED course Complexity details: reviewed results, re-evaluated patient, considered differential (No ST elevation [place], no aortic dissection, no PE, no tension pneumothorax, no aortic aneurysm), d/w patient ED course: Patient with mild chest tightness and mild dyspnea for the past several weeks since being sick with a viral upper respiratory infection. He is well- appearing, nontoxic. Afebrile. He was given a nebulizer treatment here and feels like his breathing has improved and the tightness has resolved. CT pulmonary angiogram does not show any evidence of pulmonary embolus. No evidence of acute coronary syndrome. We will prescribe an inhaler for home and have him follow-up with his PCP for further care. No chest pain with exertion Departure - Departure Disposition: Home, Self Care Clinical Impression: Viral URI Dyspnea Qualifiers: Dyspnea type: unspecified Qualified Code(s): R06.00 - Dyspnea, unspecified Condition: Good Instructions: ED Dyspnea Shortness of Breath, ED Viral Syndrome Follow-Up: BILLY DIAMOND MD [Primary Care Provider] - Within 1 week Prescriptions: Albuterol Sulf [Ventolin Hfa Inhaler] 1 - 2 puffs INH Q4HR PRN #1 each PRN Reason: Shortness Of Air/Wheezing Comments: Your prescription was sent to [facility] in [place]. You can use the inhaler to help with any shortness of breath, there is no acute findings on your CT scan. Please follow-up with your doctor for further care. When your illness has resolved, you should have a cardiac stress test with your doctor. Please return if you worsen. Forms: PCP List Discharge Date/Time: 12/27/23 18:58
[2023-12-27] MEDS ORDERED: iohexoL-300 100 ML VIAL IVP ONE (17:00)
--- NOTE | 2023-12-27 17:12 | CT Report ---
PROCEDURE: Angio Chest INDICATIONS: dyspnea CONTRAST: 80mL Omni 300 TECHNIQUE: After the administration of intravenous contrast, 2 mm axial images were acquired from the pulmonary apices to the posterior costophrenic angles during the arterial phase. In addition, 1 mm lung kernel and 5 mm soft tissue kernel reconstructions were performed. 3-dimensional coronal oblique maximum int ensity projection (MIP) reformats, 8 mm axial MIP, and 5 mm coronal and sagittal MPR reformats were t hen performed through the thorax. For radiation dose reduction, the following was used: automated exp osure control, adjustment of mA and/or kV according to patient size. COMPARISON: None. FINDINGS: Image quality: Secondary to injection timing, peripheral pulmonary branches cannot be evaluated. Large vessels: No central filling defects within the opacified pulmonary arteries, accounting for mot ion and contrast timing. Segmental arterial branches all appear heterogeneous. No evidence of acute a ortic syndrome or aortic aneurysm. Lungs and pleura: No consolidation. No pleural effusions. No pneumothorax. No suspicious pulmonary n odules which require follow up. Mediastinum: Heart size is normal. No pericardial effusion. No large vessel abnormality. No mediastin al adenopathy by size criteria. Chest wall and lower neck: Thyroid is unremarkable. No axillary or supraclavicular adenopathy by size . Bones: No aggressive osseous abnormality. Upper Abdomen: Simple bilateral renal cysts. IMPRESSION: No central pulmonary embolus. Secondary to injection appearance and opacification, segmental branches are heterogeneous bilaterally. While this is suspected to be related to artifact, small areas of und erlying emboli cannot be definitively excluded. Reviewed by: Heather Luo MD on 12/27/2023 5:11 PM [facility] Approved by: Heather Luo MD on 12/27/2023 5:11 PM [facility] Station ID: [id number]
[2023-12-27 18:46] VITALS: BP 141/99; O2SAT 98
== END 2023-12-27 18:58 | disposition home or self-care (01) ==
LOC: ED 14:50
DX: J06.9 Acute upper respiratory infection, unspecified (principal); R06.00 Dyspnea, unspecified; I10 Essential (primary) hypertension; E78.00 Pure hypercholesterolemia, unspecified; Z79.899 Other long term (current) drug therapy
CPT/HCPCS: 36415; 71045; 71275; 80053; 83690; 84484; 85025; 93005; 94640; 99283; 99284; Q9967